=== PATIENT | female | born 1960 | race Caucasian/White ===

== ENCOUNTER 2024-07-12 10:06 | Outpatient (CLI) | payer MEDICARE, SELFPAY ==
--- NOTE | 2024-07-12 10:16 | CT_ITS ---
PROCEDURE INFORMATION: Exam: CT Abdomen Without And With Contrast, Kidneys Exam date and time: 07/12/2024 10:54 AM Age: 64 years old Clinical indication: Mass, lump, or swelling; Patient HX: Kidney mass TECHNIQUE: Imaging protocol: Computed tomography images of the abdomen without and with intravenous contrast. Radiation optimization: All CT scans at this facility use at least one of these dose optimization techniques: automated exposure control; mA and/or kV adjustment per patient size (includes targeted exams where dose is matched to clinical indication); or iterative reconstruction. Contrast material: ISOVUE 370; Contrast volume: 75 ml; Contrast route: INTRAVENOUS (IV); COMPARISON: CT ABDOMEN WO/W CON 07/12/2024 10:54 AM FINDINGS: Lungs: 9 x 14 mm focal ground-glass opacity in the right lower lobe. Few scattered additional bilateral tiny (2-3 mm) nodules also present. Liver: No evidence of cirrhosis. In the left hepatic lobe, there is a 9 x 11 mm hypodense focus attenuating at approximately 72 Hounsfield units. In the subcapsular peripheral right lobe (segment 4A), there is a round calcified focus with associated mild capsular retraction which measures approximately 1.7 x 1.2 cm axial. Of note, the described splenic and hepatic lesions are not well seen on the precontrast or delayed postcontrast phases. Gallbladder and biliary ducts: Mild gallbladder wall thickening. No distinct cholelithiasis or pericholecystic inflammatory change. Pancreas: Normal. No ductal dilation. Spleen: The spleen is enlarged, measuring 13.8 cm craniocaudal. There are multiple (approximately 20) round hypodense foci in the spleen, attenuating at approximately 49 Hounsfield units, and measuring up to 2.0 x 1.6 cm axial. Multiple tiny calcified granulomas in the spleen. Adrenal glands: Normal. No mass. Kidneys and ureters: In the right kidney interpolar region, benign-appearing well-defined cyst measuring 4.9 x 4.7 x 3.6 cm (AP x CC x TV) with a thin smooth wall, homogeneous simple fluid, single thin septation , and no appreciable postcontrast enhancement. No appreciable mural nodules. No appreciable calcifications. Otherwise, no appreciable renal mass bilaterally. Normal morphology of the kidneys. No renal or ureteral calculi or obstruction bilaterally. Stomach and bowel: Small hiatal hernia. No bowel obstruction or acute inflammation.. Mild fibrofatty appearance of the terminal ileum and ascending colon suggestive of prior terminal ileitis/ileocolitis. Colonic diverticulosis. Appendix: Appendix is normal. Intraperitoneal space: Unremarkable. No free air. No significant fluid collection. Lymph nodes: No appreciable lymphadenopathy. Vasculature: Unremarkable. No abdominal aortic aneurysm. Bones/joints: Unremarkable. No acute fracture. No dislocation. Soft tissues: Unremarkable. IMPRESSION: 1. 9 x 14 mm focal ground-glass opacity in the right lower lobe. May be infectious or inflammatory. Dedicated chest CT can be obtained non emergently for complete evaluation. 2. Splenomegaly. Multiple hypodense round lesions in the spleen, measuring up to 2 cm. Differential includes splenic peliosis, hemangiomas, infectious or inflammatory etiology, (including fungal and mycobacterial), or lymphoma. If there is history of malignancy, metastatic disease not excluded. Recommend correlation. 4. 9 x 11 mm hypodense lesion in the left hepatic lobe. No evidence of hepatic cirrhosis. Differential includes hepatic peliosis, hemangioma, FNH, adenoma. If there is history of malignancy, metastatic disease not excluded. 5. Benign-appearing cyst 4.9 cm in the right kidney (Bosniak 2). No further follow-up needed. 6. No bowel obstruction or acute inflammation. COMMENTS: Consistent with the [employer]'s Incidental Findings Committee white paper (J Am Anna Radiol 2018): Any incidental renal lesion less than 1 cm or classified as too small to characterize, or any incidental cystic renal lesion characterized as simple-appearing, is likely benign. No follow-up imaging is recommended for these lesions per consensus recommendations based on imaging criteria.
[2024-07-12] MEDS: IOPAMIDOL-370 (76%);100ML BOTTLE 75 ML IV (11:16)
[2024-07-12] MEDS: SODIUM CHLORIDE 0.9% 10ML SYR (RAD ONLY) 10 ML IV (11:16)
== END 2024-07-12 23:59 | disposition home or self-care (01) ==
LOC: RAD 10:08
PROVIDERS: PCP Physician Assistant; Visit Provider Internal Medicine Cardiovascular Disease
DX: N28.89 Other specified disorders of kidney and ureter (principal)
CPT/HCPCS: 74170; Q9967